=== PATIENT | female | born 1960 | race Caucasian/White ===

== ENCOUNTER → 2022-12-08 10:04 | Outpatient (BNVA) | payer OTHER, SELFPAY | PROVIDERS: PCP Family Medicine; Visit Provider Family Medicine | DX: I10 Essential (primary) hypertension (principal) | CPT/HCPCS: 80053; 80061; 82043; 84443; 85025 ==

== ENCOUNTER 2023-06-28 14:03 | Outpatient (CLI) | payer OTHER, SELFPAY ==
--- NOTE | 2023-06-28 14:24 | MM_ITS ---
WS: [id number] BILATERAL 3D TOMOSYNTHESIS DIGITAL SCREENING MAMMOGRAPHY WITH CAD CLINICAL INFORMATION: screening HISTORY: Screening mammogram. No current complaints. COMPARISON: None. TECHNIQUE: Bilateral CC and MLO views. FINDINGS: Scattered fibroglandular densities bilaterally. No suspicious focal mass, asymmetry, calcifications, or architectural distortion. No evidence of malignancy. Punctate and lucent centered calcifications. Dystrophic calcifications. IMPRESSION: MM/[place] [id number] BI-RADS: 2-Benign FOLLOW UP: 1 Year Follow-up Recommend return to annual screening mammography.
== END 2023-06-28 14:04 | disposition home or self-care (01) ==
LOC: RAD 14:04
PROVIDERS: PCP Family Medicine; Visit Provider Family Medicine
DX: Z12.31 Encounter for screening mammogram for malignant neoplasm of breast (principal)
CPT/HCPCS: 77063; 77067

== ENCOUNTER → 2023-07-14 09:28 | Outpatient (BNVA) | payer OTHER, SELFPAY | PROVIDERS: PCP Family Medicine; Visit Provider Otolaryngology | DX: R05.3 Chronic cough (principal); E66.9 Obesity, unspecified; Z68.41 Body mass index [BMI] 40.0-44.9, adult | CPT/HCPCS: 31575; 99204 ==

== ENCOUNTER 2023-08-10 12:34 | Outpatient (CLI) | payer OTHER, SELFPAY ==
--- NOTE | 2023-08-10 12:50 | XRR_ITS ---
PROCEDURE INFORMATION: Exam: XR Chest Exam date and time: 08/10/2023 12:58 PM Age: 62 years old Clinical indication: Cough; Additional info: Chronic cough TECHNIQUE: Imaging protocol: Radiologic exam of the chest. Views: 2 views. COMPARISON: No relevant prior studies available. FINDINGS: Lungs: Unremarkable. No consolidation. Pleural spaces: Unremarkable. No pleural effusion. No pneumothorax. Heart/Mediastinum: Unremarkable. No cardiomegaly. Bones/joints: Unremarkable. XR/XR chest 2V* [id number] IMPRESSION: No acute findings.
== END 2023-08-10 12:35 | disposition home or self-care (01) ==
LOC: RAD 12:36
PROVIDERS: PCP Family Medicine; Visit Provider Otolaryngology
DX: R05.3 Chronic cough (principal)
CPT/HCPCS: 71046

== ENCOUNTER → 2023-11-15 09:59 | Outpatient (BNVA) | payer OTHER, SELFPAY | PROVIDERS: PCP Family Medicine; Referring Provider Otolaryngology; Visit Provider Internal Medicine Pulmonary Disease | DX: R05.3 Chronic cough (principal); T78.40XA Allergy, unspecified, initial encounter; X58.XXXA Exposure to other specified factors, initial encounter; R06.02 Shortness of breath | CPT/HCPCS: 36415; 82785; 86003; 99204 ==

== ENCOUNTER 2023-11-25 13:39 | Outpatient (CLI) | payer MEDICARE, OTHER, SELFPAY ==
[2023-11-25 13:58] VITALS: PULSE 98; RESP 18; O2SAT 98
[2023-11-25] MEDS: albuterol 2.5 mg/3 mL Neb INHALATION (13:58)
== END 2023-11-25 13:40 | disposition home or self-care (01) ==
LOC: RT 13:40
PROVIDERS: PCP Family Medicine; Visit Provider Internal Medicine Pulmonary Disease
DX: R06.02 Shortness of breath (principal)
CPT/HCPCS: 94060; 94729

== ENCOUNTER → 2023-12-28 14:13 | Outpatient (BNVA) | payer MEDICARE, OTHER, SELFPAY | PROVIDERS: PCP Family Medicine; Visit Provider Internal Medicine Pulmonary Disease | DX: R05.3 Chronic cough (principal); T78.40XA Allergy, unspecified, initial encounter; X58.XXXA Exposure to other specified factors, initial encounter | CPT/HCPCS: 99214 ==

== ENCOUNTER 2024-08-16 10:13 | Emergency (ER) | payer MEDICARE, OTHER, SELFPAY ==
[2024-08-16 10:24] VITALS: BP 153/96; PULSE 70; RESP 16; TEMP 36.5; O2SAT 96; BMI 28.6
--- NOTE | 2024-08-16 12:07 | ED_ITS ---
HPI - Extremity Problem General: Chief complaint: Extremity Problem,Nontraumatic Stated complaint: R. foot unable to lift or bend Time Seen by Provider: 08/16/24 11:18 History of Present Illness: 63-year-old female reports 3 or 4 weeks ago she started noticing that her right foot was not working well. She kept getting it caught on things and she even fell a few times. She denies any injury. She does not drink alcohol and does not think there was any times where she had altered level of consciousness. She denies any diabetes or known neuropathy. She reports she can push down on her foot and she can turn her foot in but cannot turn her foot out or pull her foot up (in dorsiflexion). She has no other signs or symptoms. Associated symptoms: Deny chest pain, fever(s) or rash Related Data Home Medications Medication Instructions Recorded Confirmed aspirin 81 mg tablet,delayed 81 mg PO DAILY 08/16/24 08/16/24 release (Sidney Low Dose Aspirin) calcium carbonate 500 mg PO DAILY 08/16/24 08/16/24 ferrous sulfate 27 mg iron tablet 27 mg PO DAILY 08/16/24 08/16/24 vzovaopwfucd-iggyjzsy-emoie acid 1 cap PO DAILY 08/16/24 08/16/24 400 mcg-vitamin K 80 mcg capsule (Multi For Her 50 Plus) pantoprazole 40 mg tablet,delayed 40 mg PO BID 08/16/24 08/16/24 release vit A 7,160 unit-vit C 113 mg-vit 1 tab PO DAILY 08/16/24 08/16/24 E 100 soxr-zvuh-rbhxzi tablet vitamin B complex 1 cap PO DAILY 08/16/24 08/16/24 Allergies Allergy/AdvReac Type Severity Reaction Status Date / Time amlodipine Allergy Mild rash Verified 12/28/23 14:52 ALESSANDRA Inhibitors Allergy cough Verified 12/28/23 14:52 Review of Systems General: Reports: 10 or more systems reviewed and unremarkable except in HPI and below Const: Denies: fever(s), chills or body aches Eyes: Denies: change in vision ENMT: Denies: throat pain Card: Denies: chest pain, edema or syncope Resp: Denies: dyspnea or productive cough GI: Denies: abdominal pain, nausea, vomiting or diarrhea : Denies: flank pain, dysuria or urinary frequency Musc: Denies: neck pain, back pain, extremity pain or extremity swelling Skin/Breast: Denies: rash or erythema Neuro: Denies: headache(s), numbness in extremities or lack of coordination PFSH ED PFSH: Medical History Benign essential HTN Surgical History History of tonsillectomy History of tubal ligation Family History Father Stroke Mother Cancer thyroid, cervical CAD (coronary artery disease) Social History Smoking and tobacco/nicotine status: former use of tobacco/nicotine Quit status (tobacco/nicotine): has quit using Year quit tobacco: 1979 Former quit date comment: 1-2 cigarettes per day X 7 years Physical Exam Narrative: EXAM NARRATIVE: The right lower extremity was examined carefully. Normal to visual inspection. Quads, hamstrings, gastrocnemius/soleus muscle, Achilles all normal. However, she does have a right foot drop. She is unable to dorsiflex her foot and great toe. She has some mild tenderness over the superficial peroneal nerve region of the right leg. There are no masses here. No signs of DVT. Her DP pulses 2+. Sensation is normal to light touch and pinch. The patient can invert her foot and plantarflex but cannot randi or dorsiflex. Everything else is normal. The remainder of her extremities have normal strength and sensation. Const: COMMON NORMALS: no limitations, alert and well nourished EXAM LIMITATIONS: no altered mental status HENMT: COMMON NORMALS: normocephalic, atraumatic and external ears normal HEAD & SCALP: normocephalic and atraumatic EXTERNAL EAR: Yes external ears normal MOUTH: no muffled voice Eye: COMMON NORMALS: EOMs intact bilaterally, conjunctivae normal and no scleral icterus CONJUNCTIVA: Yes conjunctivae normal Neck/C-Spine: COMMON NORMALS: no JVD GENERAL: Yes normal visual inspection and Yes trachea midline Resp: COMMON NORMALS: normal respiratory effort, No use of accessory muscles and clear to auscultation bilaterally AUSCULTATION: clear to auscultation bilaterally Cardio: COMMON NORMALS: no JVD, regular rate and regular rhythm RATE: regular rate RHYTHM: regular rhythm GI: COMMON NORMALS: Soft to palpation and non-tender PALPATION: Yes Soft to palpation and No Guarding due to palpation present (GI) Neuro: COMMON NORMALS: no sensory deficits noted SENSORIUM/ORIENTATION: Yes alert SPEECH: speech normal Psych: COMMON NORMALS: mental status grossly normal, Normal thought process present, cooperative, normal affect and speech normal SPEECH: Yes normal speech THOUGHT PROCESS: Normal thought process present Skin: COMMON NORMALS: no rashes or lesions noted, turgor normal and no jaundice GENERAL SKIN EXAM: no rashes or lesions noted and turgor normal Course Vital Signs: Vital signs: Vital Signs Temperature 97.7 F 08/16/24 10:24 Pulse Rate 63 08/16/24 12:22 Respiratory Rate 16 08/16/24 10:24 Blood Pressure 167/95 08/16/24 12:22 Pulse Oximetry 98 08/16/24 12:22 Oxygen Delivery Me thod Room Air 08/16/24 10:24 MDM - Extremity (Nontraumatic) Medical Decision Making Patient has isolated right-sided foot drop secondary to superficial peroneal neuropathy. Unclear why she has developed this neuropathy whether its entrapment, trauma, etc. Remainder of her examination is normal. I consulted with Dr. Fitzgerald, neurology. He reports that no further ER workup needs to be done. He recommends nerve conduction study and possible EMG as an outpatient. He has made a note and we will help set this up. I have discussed with physical therapist and they have provided her an ankle-foot orthotic from [id number]. I have written a prescription for a custom AFO. Patient can be discharged from the ER and follow-up with neurology clinic. No radiology studies performed this visit Discharge Plan Discharge Patient Disposition: Home Clinical Impression: Neuropathy of right superficial peroneal nerve Condition: Stable Prescriptions: No Action aspirin [Sidney Low Dose Aspirin] 81 mg Tablet,Delayed Release (Dr/Ec) 81 mg PO DAILY calcium carbonate [Calcium 500] 500 mg calcium (1,250 mg) Tablet 500 mg PO DAILY pantoprazole 40 mg tablet,delayed release (DR/EC) 40 mg PO BID vitamin B complex [B Complex] Capsule 1 cap PO DAILY ferrous sulfate 27 mg iron Tablet 27 mg PO DAILY Multi For Her 50 Plus 400-80 mcg Capsule 1 cap PO DAILY Eye Vitamin and Minerals 7,160-113-100 eyqz-im-xflz Tablet 1 tab PO DAILY Discharge Orders: Discharge ED (Routine); Ordered 08/16/24 Ordered By: Sheldon Christensen Referrals: Jatinder Fitzgerald MD [Physician] - 7-10 days (Nerve conduction study with possible EMG) Danni Iglesias DO [Primary Care Provider] - Activity Restrictions/Additional Instructions: We have diagnosed you preliminarily with superficial right sided peroneal neuropathy. There are many potential causes for this. Please follow-up with neurology for a nerve conduction study with possibility of electromyography. Dr. Fitzgerald has put in a referral for you to get this done. Wear your ankle-foot orthotic to help prevent tripping and damage to your toes and foot. Coding Level of Care Code ED [employer] Operator for Darshan Krishna
[2024-08-16 12:22] VITALS: BP 167/95; PULSE 63; O2SAT 98
== END 2024-08-16 12:28 | disposition home or self-care (01) ==
PROVIDERS: Emergency Provider Emergency Medicine; PCP Family Medicine
DX: G62.9 Polyneuropathy, unspecified (principal); Z79.82 Long term (current) use of aspirin; Z87.891 Personal history of nicotine dependence; I10 Essential (primary) hypertension
CPT/HCPCS: 97760; 99282; L1930

== ENCOUNTER → 2024-08-17 06:39 | Outpatient (BNVA) | payer MEDICARE, OTHER, SELFPAY | PROVIDERS: PCP Family Medicine; Referring Provider Psychiatry & Neurology Neurology; Visit Provider Psychiatry & Neurology Neurology | DX: G57.31 Lesion of lateral popliteal nerve, right lower limb (principal); M21.371 Foot drop, right foot | CPT/HCPCS: 95910 ==

== ENCOUNTER → 2024-08-24 14:53 | Outpatient (BNVA) | payer MEDICARE, OTHER, SELFPAY | PROVIDERS: PCP Family Medicine; Visit Provider Podiatrist Foot & Ankle Surgery | DX: R29.898 Other symptoms and signs involving the musculoskeletal system (principal); M21.371 Foot drop, right foot; Z91.81 History of falling | CPT/HCPCS: 99203 ==

== ENCOUNTER 2024-08-25 15:33 | Outpatient (CLI) | payer MEDICARE, OTHER, SELFPAY ==
--- NOTE | 2024-08-25 16:00 | MRR_ITS ---
PROCEDURE INFORMATION: Exam: MR Lumbar Spine Without and With Contrast Exam date and time: 08/25/2024 4:16 PM Age: 63 years old Clinical indication: Patient HX: RT sided foot drop; Additional info: G57.31 - lesion of lateral popliteal nerve, right lower limb TECHNIQUE: Imaging protocol: Magnetic resonance imaging of the lumbar spine without and with contrast. Contrast material: MULTIHANCE; Contrast volume: 17 ml; Contrast route: INTRAVENOUS (IV); COMPARISON: No relevant prior studies available. FINDINGS: Limitations: Suboptimal evaluation of multiple sequences secondary to patient motion. Bones/joints: The lumbar vertebral bodies are normally aligned. There is a compression deformity along the superior endplate of the L4 vertebral body with up to 10% loss in height. There is associated edema and enhancement compatible with acute fracture. Moderate disc space narrowing at L4-L5. Moderate to severe disc space narrowing at L5-S1. Mild disc space narrowing at the remaining lumbar levels. Spinal cord: The conus terminates normally at the T12-L1 level. The roots of the cauda equina are not clumped or thickened. No abnormal intrathecal enhancement. L1-L2: No significant disc bulge or herniation. No severe spinal canal stenosis. No significant neural foraminal narrowing. L2-L3: Broad concentric disc bulge and bilateral facet arthropathy contributing to mild central canal stenosis. Mild bilateral neuroforaminal narrowing. L3-L4: Broad concentric disc bulge and bilateral facet arthropathy contributing to xacm-qo-odbosljo central canal stenosis. Mild left neuroforaminal narrowing. L4-L5: Broad concentric disc bulge and bilateral facet arthropathy contributing to bhfi-cx-nrcgyfkm central canal stenosis. Moderate bilateral neuroforaminal narrowing. L5-S1: Broad concentric disc bulge and bilateral facet arthropathy contributing to mild central canal stenosis. Moderate bilateral neuroforaminal narrowing. Soft tissues: Pkqz-qr-jusvhgvg right-sided hydronephrosis. MR/MR lumbar spine wo/w con [id number] IMPRESSION: 1. Acute L4 compression deformity with up to 10% loss in height. 2. Multilevel degenerative changes of the lumbar spine as outlined above. 3. Right-sided hydronephrosis. Findings may be further assessed with dedicated CT scan renal stone protocol or CT urogram if clinically indicated.
[2024-08-25] MEDS: gadobenate dimeglumine 20 mL vial 18 ML IV (16:28)
== END 2024-08-25 15:34 | disposition home or self-care (01) ==
LOC: RAD 15:33
PROVIDERS: Visit Provider Psychiatry & Neurology Neurology
DX: G57.31 Lesion of lateral popliteal nerve, right lower limb (principal); R29.898 Other symptoms and signs involving the musculoskeletal system; S32.040A Wedge compression fracture of fourth lumbar vertebra, initial encounter for closed fracture; M51.370 Other intervertebral disc degeneration, lumbosacral region with discogenic back pain only; M47.896 Other spondylosis, lumbar region; N13.39 Other hydronephrosis; M99.64 Osseous and subluxation stenosis of intervertebral foramina of sacral region; M99.63 Osseous and subluxation stenosis of intervertebral foramina of lumbar region
CPT/HCPCS: 72158

== ENCOUNTER → 2024-09-21 15:03 | Outpatient (BNVA) | payer MEDICARE, OTHER, SELFPAY | PROVIDERS: Visit Provider Orthopaedic Surgery | DX: M54.9 Dorsalgia, unspecified (principal); R29.898 Other symptoms and signs involving the musculoskeletal system | CPT/HCPCS: 72110; 99204 ==

== ENCOUNTER 2024-11-27 09:11 | Outpatient (CLI) | payer MEDICARE, OTHER, SELFPAY ==
--- NOTE | 2024-11-27 09:40 | MM_ITS ---
WS: [id number] BILATERAL SCREENING DIGITAL TOMOSYNTHESIS MAMMOGRAM WITH CAD HISTORY: screening COMPARISON: 06/28/2023, 05/27/2021 Bilateral CC and MLO views with tomosynthesis and synthetic mammography submitted. Computer aided detection analyzed. Breast composition: The breasts are almost entirely fatty. No suspicious masses, microcalcifications or architectural distortion. Coarse calcifications in each breast are benign. MM/MM scr BI tomosynthesis [id number] IMPRESSION: BI-RADS: 2 - Benign. FOLLOW UP: 1 Year Follow-up
== END 2024-11-27 09:12 | disposition home or self-care (01) ==
PROVIDERS: PCP Family Medicine; Visit Provider Family Medicine
DX: Z12.31 Encounter for screening mammogram for malignant neoplasm of breast (principal); R92.313 Mammographic fatty tissue density, bilateral breasts; R92.1 Mammographic calcification found on diagnostic imaging of breast
CPT/HCPCS: 77063; 77067

== ENCOUNTER → 2024-11-30 09:43 | Outpatient (BNVA) | payer MEDICARE, OTHER, SELFPAY | PROVIDERS: PCP Family Medicine; Visit Provider Student in an Organized Health Care Education/Training Program | DX: Z12.11 Encounter for screening for malignant neoplasm of colon (principal) | CPT/HCPCS: 99204 ==

== ENCOUNTER 2025-02-06 07:23 | Day surgery (SDC) | payer MEDICARE, OTHER, SELFPAY ==
[2025-02-06 07:36] VITALS: BP 161/95; PULSE 83; RESP 18; TEMP 36.2; O2SAT 99; BMI 23.3
[2025-02-06] MEDS: sodium chloride 0.9% 1,000 ML 15 ML IV (07:41)
--- NOTE | 2025-02-06 08:04 | ANES.PREANE2 ---
Pre-Anesthetic Assessment Height/Weight: Height 1.7 m Weight 67.585 kg Temp Pulse Resp BP Pulse Ox O2 Del Method 97.1 F L 83 18 161/95 99 Room Air 02/06/25 07:36 02/06/25 07:36 02/06/25 07:36 02/06/25 07:36 02/06/25 07:36 02/06/25 07:36 Preop Diagnosis: screening Operation Date: 02/06/25 08:30 Proposed Procedures p Colonoscopy [id number] G0121 Z12.11(Not Applicable) - Moy Desai MD Familial anesthetic complications: none Was Beta Kevin taken within 24 hours: N/A Was Clonidine taken within 24 hours: N/A Last intake: Intake Last Liquid Date 02/05/25 Last Liquid Time 20:00 Last Solid Date 02/04/25 Last Solid Time 18:00 Social Alcohol and No tobacco Exam alert, oriented x 3, clear to auscultation bilaterally and regular rate & rhythm Airway Submandibular: within normal limits Cervical ROM: within normal limits Mallampati: Class II Dentition: full History/ROS No significant history except as noted and No significant complaints Pulmonary None reported CV/HEM None reported Kidney stones Hepatic None reported GI None reported Metabolic None reported Musc/skel None reported Neuropsych None reported Anesthetic Plan ASA status: 2 Anesthesia: MAC Risk of > 500 ml blood loss (7ml/kg in children): No Other Pertinent Information Lost 100 lbs from weight loss surgery Medications/Allergies Home Medications ?Medication ?Instructions ?Recorded ?Confirmed ?Last Taken ?Type aspirin 81 mg tablet,delayed 81 mg PO DAILY 08/16/24 02/01/25 01/30/25 History release (Sidney Low Dose Aspirin) calcium carbonate 500 mg PO DAILY 08/16/24 02/01/25 02/05/25 History ferrous sulfate 27 mg iron tablet 27 mg PO DAILY 08/16/24 02/01/25 02/05/25 History vzvgxjqenrms-jzjpmkpq-crxeb acid 1 cap PO DAILY 08/16/24 02/01/25 02/05/25 History 400 mcg-vitamin K 80 mcg capsule (Multi For Her 50 Plus) vit A 7,160 unit-vit C 113 mg-vit 1 tab PO DAILY 08/16/24 02/01/25 02/05/25 History E 100 nvhc-nsze-sxbumd tablet Right [place] afo ossur light #1 ea 08/24/24 11/30/24 02/05/25 Rx Carbon Fiber AFO that can fit into #1 ea 08/28/24 11/30/24 02/05/25 Rx her shoe to the RIGHT ondansetron 8 mg disintegrating 8 mg PO Q8H PRN nausea and 11/30/24 02/01/25 Unknown Rx tablet vomiting #3 tabs biotin 10,000 mcg capsule 10,000 mcg PO DAILY 02/01/25 02/01/25 02/05/25 History collagen,hydrolysate 500 mg-biotin 1 cap PO DAILY 02/01/25 02/01/25 02/05/25 History 800 mcg-ascorbic acid 50 mg capsule (Collagen 1500 Plus C) Allergies Allergy/AdvReac Type Severity Reaction Status Date / Time amlodipine Allergy Mild rash Verified 11/30/24 10:00 ALESSANDRA Inhibitors Allergy cough Verified 11/30/24 10:00 Current Medications Generic Name Dose Route Start Last Admin Trade Name Freq PRN Reason Stop Dose Admin Sodium Chloride 1,000 mls @ 15 mls/hr 02/06/25 07:30 02/06/25 07:41 Sodium Chloride 0.9% IV 02/07/25 07:29 15 mls/hr .Q24H PRN Administration COLONOSCOPY FLUIDS PFSH Anesthesia Medical History Nephrolithiasis Right foot drop Lumbar stenosis with neurogenic claudication Surgical History Hx of bariatric surgery History of tonsillectomy History of tubal ligation Family History Father Stroke Mother Cancer thyroid, cervical CAD (coronary artery disease) Social History Smoking and tobacco/nicotine status: never used tobacco/nicotine Quit status (tobacco/nicotine): has quit using Year quit tobacco: 1979 Former quit date comment: 1-2 cigarettes per day X 7 years
--- NOTE | 2025-02-06 08:27 | W.PM.OPSFHP ---
Same Day Surgery H&P Indication for Procedure/HPI DATE OF PROCEDURE: February 06, 2025 CHIEF COMPLAINT/INDICATIONFOR SURGICAL PROCEDURE: screening colonoscopy PREOP DIAGNOSIS: screening colonoscopy PLANNED PROCEDURE: Operation Date: 02/06/25 08:30 Proposed Procedures p Colonoscopy [id number] G0121 Z12.11(Not Applicable) - Moy Desai MD Medications/Allergies* Home Medications ?Medication ?Instructions ?Recorded ?Confirmed ?Type aspirin 81 mg tablet,delayed 81 mg PO DAILY 08/16/24 02/01/25 History release (Sidney Low Dose Aspirin) calcium carbonate 500 mg PO DAILY 08/16/24 02/01/25 History ferrous sulfate 27 mg iron tablet 27 mg PO DAILY 08/16/24 02/01/25 History paplwholmglv-bohltpvd-gzuxo acid 1 cap PO DAILY 08/16/24 02/01/25 History 400 mcg-vitamin K 80 mcg capsule (Multi For Her 50 Plus) vit A 7,160 unit-vit C 113 mg-vit 1 tab PO DAILY 08/16/24 02/01/25 History E 100 yext-rcrv-osucuj tablet biotin 10,000 mcg capsule 10,000 mcg PO DAILY 02/01/25 02/01/25 History collagen,hydrolysate 500 mg-biotin 1 cap PO DAILY 02/01/25 02/01/25 History 800 mcg-ascorbic acid 50 mg capsule (Collagen 1500 Plus C) Allergies/Adverse Reactions Allergy/AdvReac Type Severity Reaction Status Date / Time amlodipine Allergy Mild rash Verified 11/30/24 10:00 ALESSANDRA Inhibitors Allergy cough Verified 11/30/24 10:00 Current Medications: Generic Name Dose Route Start Last Admin Trade Name Freq PRN Reason Stop Dose Admin Sodium Chloride 1,000 mls @ 15 mls/hr 02/06/25 07:30 02/06/25 07:41 Sodium Chloride 0.9% IV 02/07/25 07:29 15 mls/hr .Q24H PRN Administration COLONOSCOPY FLUIDS Pertinent History/Comorbid Conditions* Medical History (Updated 11/10/24 @ 14:15 by Kevin Mart MD) Nephrolithiasis Right foot drop Lumbar stenosis with neurogenic claudication Surgical History (Updated 11/10/24 @ 14:01 by Kevin Mart MD) Hx of bariatric surgery History of tonsillectomy History of tubal ligation Family History (Updated 12/08/22 @ 09:17 by Michelle Lam LPN) Father Mother CAD (coronary artery disease) Mother Cancer Mother thyroid, cervical Stroke Father Social History Smoking and tobacco/nicotine status: never used tobacco/nicotine Quit status (tobacco/nicotine): has quit using Year quit tobacco: 1979 Former quit date comment: 1-2 cigarettes per day X 7 years Pertinent Exam Findings alert, oriented x 3, clear to auscultation bilaterally, regular rate & rhythm and procedure specific exam findings abdomen soft, nt, nd Recommendations Risks and benefits of procedure reviewed Surgery/Procedure today Coding Level of Care Code Acute Code for Chg Tomi
[2025-02-06 08:50] VITALS: BP 133/81; PULSE 64; RESP 16; TEMP 36.2; O2SAT 100
[2025-02-06 09:19] VITALS: BP 151/77; PULSE 59; RESP 16; O2SAT 100
--- NOTE | 2025-02-06 09:25 | ANE.PACU2 ---
Inpatient post-anesthesia follow up: Airway intact: Yes Vital signs: Temperature 97.1 F Pulse Rate 59 Respiratory Rate 16 Blood Pressure 151/77 Pulse Oximetry 100 Oxygen Delivery Me thod Room Air Oxygen Flow Rate Fraction of Inspir ed Oxygen Hydration adequate: Yes Nausea and vomiting: No Pain level: 1 Mental status: Baseline
== END 2025-02-06 09:25 | disposition home or self-care (01) ==
PROVIDERS: PCP Family Medicine; Visit Provider Student in an Organized Health Care Education/Training Program
PROC: 0DJD8ZZ Inspection of Lower Intestinal Tract, Via Natural or Artificial Opening Endoscopic (ICD-10-PCS; CPT 45378; principal; 2025-02-06 08:30)
DX: Z12.11 Encounter for screening for malignant neoplasm of colon (principal); D12.2 Benign neoplasm of ascending colon; D12.5 Benign neoplasm of sigmoid colon; Z79.82 Long term (current) use of aspirin; Z98.84 Bariatric surgery status; Z87.442 Personal history of urinary calculi; Z87.891 Personal history of nicotine dependence; Z88.8 Allergy status to other drugs, medicaments and biological substances
CPT/HCPCS: 45380; 45385; 88305; J2704; J7030

== ENCOUNTER → 2025-02-26 08:33 | Outpatient (BNVA) | payer MEDICARE, OTHER, SELFPAY | PROVIDERS: PCP Family Medicine; Visit Provider Student in an Organized Health Care Education/Training Program | DX: Z09 Encounter for follow-up examination after completed treatment for conditions other than malignant neoplasm (principal) | CPT/HCPCS: 99213 ==

== ENCOUNTER 2025-05-09 08:23 | Outpatient (CLI) | payer MEDICARE, OTHER, SELFPAY ==
--- NOTE | 2025-05-09 08:45 | MR_ITS ---
WS: [id number] MRI LEFT ELBOW WITH AND WITHOUT CONTRAST. COMPARISON: None. Multiplanar, multisequence imaging is performed without contrast. Normal alignment at the elbow joint. No fractures or marrow edema. Superficial heterogeneous cystic mass posterior to the olecranon measures 7.0 x 4.3 x 12.8 mm. This corresponds to the palpable abnormality. There is slight variable signal in the central cystic mass. No adjacent inflammation in the associated soft tissues. Triceps tendon is intact. No enthesopathy is identified by MRI. No significant joint effusion. Ulnar and radial collateral ligaments with associated common flexor and extensor tendons are normal. Normal biceps tendon. Normal radial brachialis tendon. Normal brachialis tendon. No muscle atrophy or edema. MR/MR elbow LT wo/w con [id number] IMPRESSION: 1. Olecranon bursitis. Bursal distention measures 7.0 x 4.3 x 12.8 mm. No yinka cent inflammation. Olecranon bursitis can be noted with acute or chronic posttr aumatic changes, infection, gout or rheumatoid arthritis. 2. No tendon or ligament abnormality.
[2025-05-09] MEDS: gadobenate dimeglumine 20 mL vial 14 ML IV (09:54)
== END 2025-05-09 08:24 | disposition home or self-care (01) ==
LOC: RAD 08:23
PROVIDERS: PCP Family Medicine; Visit Provider Family Medicine
DX: D17.9 Benign lipomatous neoplasm, unspecified (principal); R22.32 Localized swelling, mass and lump, left upper limb; M70.22 Olecranon bursitis, left elbow; M06.822 Other specified rheumatoid arthritis, left elbow
CPT/HCPCS: 73223

== ENCOUNTER → 2025-05-11 08:13 | Outpatient (BNVA) | payer MEDICARE, OTHER, SELFPAY | PROVIDERS: PCP Family Medicine; Visit Provider Nurse Practitioner | DX: M70.22 Olecranon bursitis, left elbow (principal); R22.32 Localized swelling, mass and lump, left upper limb | CPT/HCPCS: 73080; 99204 ==

== ENCOUNTER → 2025-06-22 11:04 | Outpatient (BNVA) | payer MEDICARE, OTHER, SELFPAY | PROVIDERS: PCP Family Medicine; Visit Provider Family Medicine | DX: I10 Essential (primary) hypertension (principal); Z86.39 Personal history of other endocrine, nutritional and metabolic disease; E11.9 Type 2 diabetes mellitus without complications | CPT/HCPCS: 80053; 80061; 83036; 84439; 84443; 85025; 86376 ==

== ENCOUNTER → 2025-07-06 09:23 | Outpatient (BNVA) | payer MEDICARE, OTHER, SELFPAY | PROVIDERS: PCP Family Medicine; Visit Provider Nurse Practitioner | DX: M70.22 Olecranon bursitis, left elbow (principal) | CPT/HCPCS: 99213 ==

== ENCOUNTER → 2025-09-11 10:37 | Outpatient (BNVA) | payer MEDICARE, OTHER, SELFPAY | PROVIDERS: PCP Family Medicine; Visit Provider Family Medicine | DX: N17.9 Acute kidney failure, unspecified (principal) | CPT/HCPCS: 80053 ==